=== PATIENT | male | born 1990 | race Caucasian/White ===

== ENCOUNTER → 2023-04-02 | Outpatient (CLI) | payer OTHER | LOC: M PLAIMG 12:25 | PROVIDERS: ATTEND Otolaryngology | DX: J32.9 Chronic sinusitis, unspecified (principal) ==

== ENCOUNTER 2024-05-25 00:52 | Emergency (ER) | payer OTHER ==
[~2024-05-25] VITALS: Ht 195.6 cm; Wt 117.0 kg
[2024-05-25 00:57] VITALS: BP 177/90; TEMP 96.8; O2SAT 96
[2024-05-25] MEDS ORDERED: BACT800T5 PO (01:41)
[2024-05-25] MEDS: BACTRIM 160MG/800MG DS TAB PO ONE (01:52)
== END 2024-05-25 01:54 | disposition home or self-care (01) ==
LOC: M ED 00:52
DX: S61.002A Unspecified open wound of left thumb without damage to nail, initial encounter (principal); Y92.019 Unspecified place in single-family (private) house as the place of occurrence of the external cause; Y93.9 Activity, unspecified; Y99.9 Unspecified external cause status; Z88.0 Allergy status to penicillin; Z79.2 Long term (current) use of antibiotics